=== PATIENT | male | born 1990 ===

== ENCOUNTER 2016-08-07 18:03 | Emergency (ER) | payer SELFPAY ==
[~2016-08-07 18:03] MED LIST: BIAXIN500 MG PO; NO MEDS; NORCO 7.5/325 T1 TAB PO; ULTRAM50 MG PO
[2016-08-07] MEDS ORDERED: POLYMYXIN B-TMP10 M1 OP (19:13)
== END 2016-08-07 19:35 ==
LOC: EDMED 18:03
DX: H10.89 Other conjunctivitis (principal); F17.200 Nicotine dependence, unspecified, uncomplicated